=== PATIENT | female | born 1985 | race Two or more races ===

== ENCOUNTER → 2018-08-15 | Outpatient (CLI) | payer OTHER ==
--- NOTE | 2018-08-15 15:36 | Diagnostic Imaging Report ---
TECHNIQUE: Magnetic resonance imaging of the RIGHT ankle and foot was performed WITHOUT injected contrast. COMPARISON: None available. HISTORY: Pain, fall FINDINGS: LIGAMENTS: Medial Complex: Intact Lateral Complex: Intact, including the tibiofibular ligaments. TENDONS: Medial: Intact Lateral: Mild common peroneal tenosynovitis. Anterior: Intact Achilles: Intact BONES: No focal or infiltrative bone marrow replacing abnormality. No acute fracture or osteonecrosis. JOINTS: Cartilage: No focal defect is identified involving the tibiotalar joint. Other: Fluid within the joints is within physiologic limits. SOFT TISSUES: Plantar calcaneal enthesophyte. No intermetatarsal space neuroma of the forefoot. The plantar plates are intact IMPRESSION: No acute osseous, ligamentous, or tendinous abnormality. Mild common peroneal tenosynovitis. Signed by: Dr. Darren Adams M.D. on 08/15/2018 3:33 PM
== END ==
LOC: MRI 13:19
PROVIDERS: ATTEND Family Medicine
DX: S83.401A Sprain of unspecified collateral ligament of right knee, initial encounter (principal); S39.012A Strain of muscle, fascia and tendon of lower back, initial encounter; S80.01XA Contusion of right knee, initial encounter; S90.31XA Contusion of right foot, initial encounter; S90.01XA Contusion of right ankle, initial encounter
CPT/HCPCS: 81025

== ENCOUNTER → 2021-02-03 | Outpatient (CLI) | payer OTHER ==
[~2021-02-03] MED LIST: COVID-19 VACC, MRNA(MODERNA)/PF 100 MCG/0.5 ML VIAL IM ONE
== END ==
LOC: VACCPMC 11:22
DX: Z23 Encounter for immunization (principal); Z20.822 Contact with and (suspected) exposure to COVID-19
CPT/HCPCS: 0011A; 91301

== ENCOUNTER → 2021-03-03 | Outpatient (CLI) | payer OTHER | END | disposition home or self-care (01) | LOC: VACCPMC 09:00 | DX: Z23 Encounter for immunization (principal); Z20.822 Contact with and (suspected) exposure to COVID-19 | CPT/HCPCS: 91301 ==